=== PATIENT | female | born 1950 | race Two or more races ===

== ENCOUNTER 2024-09-10 04:37 | Emergency (ER) | payer OTHER ==
[~2024-09-10] VITALS: Ht 152.4 cm; Wt 70.8 kg
[~2024-09-10 04:37] MED LIST: ATACAND32 MG; CRESTOR5 MG; HYDRALAZINE HCL25 MG; RESTORIL15 MG; SYNTHROID88 MCG; TOPROL XL25 M1; VITAMIN D3
[2024-09-10] MEDS ORDERED: CARTIA XT180 MG PO (04:46)
[2024-09-10] MEDS ORDERED: HYDROXYZIN10 MG/5 ML PO (04:47)
[2024-09-10] MEDS ORDERED: ACETAMINOPHEN 500 MG GEL..CAP PO STA (05:46)
== END 2024-09-10 08:23 ==
LOC: ER 04:37
DX: S09.8XXA Other specified injuries of head, initial encounter (principal); W06.XXXA Fall from bed, initial encounter; Y93.89 Activity, other specified; Y92.013 Bedroom of single-family (private) house as the place of occurrence of the external cause; S05.91XA Unspecified injury of right eye and orbit, initial encounter